=== PATIENT | female | born 1980 | race Caucasian/White ===

== ENCOUNTER → 2018-10-20 | Outpatient (CLI) | payer OTHER ==
[~2018-10-20] MED LIST: BENZ100A PO; MELO7.5 PO; TRAM50 PO
[2018-10-20 18:26] LABS: BASOPHILS ABSOLUTE AUTO 0.04 K/mm3 (0.00-0.23); BASOPHILS PERCENT AUTO 1 % (0-2); EOSINOPHILS ABSOLUTE AUTO 0.03 K/mm3 (0.00-0.68); EOSINOPHILS PERCENT AUTO 1 % (0-6); Hematocrit 46.6 % (33.0-51.0); Hemoglobin 15.1 g/dL (11.5-16.0); IMMATURE GRAN ABSOLUTE AUTO 0.02 K/mm3 (0.00-0.10); IMMATURE GRAN PERCENT AUTO 1 % (0-1); LYMPHOCYTES ABSOLUTE AUTO 0.75 K/mm3 (0.84-5.20); LYMPHOCYTES PERCENT AUTO 24 % (21-46); MONOCYTES ABSOLUTE AUTO 0.26 K/mm3 (0.16-1.47); MONOCYTES PERCENT AUTO 8 % (4-13); Mean Corpuscular HGB 28.8 pg (26.0-34.0); Mean Corpuscular HGB Conc 32.4 g/dL (31.5-36.5); Mean Corpuscular Volume 89 fL (80-100); Mean Platelet Volume 9.9 fL (9.1-12.4); NEUTROPHILS ABSOLUTE AUTO 1.99 K/mm3 (1.96-9.15); NEUTROPHILS PERCENT AUTO 64 % (41-73); Platelet Count 276 K/mm3 (150-400); RDW Standard Deviation 42.5 fL (35.1-46.3); Red Blood Cell Count 5.25 M/mm3 (3.80-5.20); White Blood Cell Count 3.09 K/mm3 (4.00-11.30)
== END | disposition home or self-care (01) ==
LOC: LAB SHORT 18:19 → LAB 18:19
PROVIDERS: Family Medicine
DX: R50.9 Fever, unspecified (principal)
CPT/HCPCS: 85025

== ENCOUNTER 2019-06-17 12:46 | Emergency (ER) | payer BC ==
[~2019-06-17] VITALS: Ht 160 cm; Wt 79.4 kg
[2019-06-17] MEDS ORDERED: CYCL10 PO (14:03)
[2019-06-17] MEDS ORDERED: Voltaren100 GM TOP (14:03)
== END 2019-06-17 14:12 | disposition home or self-care (01) ==
LOC: ER 12:46
DX: M54.5 Low back pain (principal); M79.673 Pain in unspecified foot; M87.9 Osteonecrosis, unspecified; J45.909 Unspecified asthma, uncomplicated; Z79.899 Other long term (current) drug therapy
CPT/HCPCS: 72100; 73502; 96372; 99283-25; J1885

== ENCOUNTER → 2019-12-06 | Outpatient (CLI) | payer BC ==
[~2019-12-06] MED LIST changes: +CYCL10 PO; +Voltaren100 GM TOP
[2019-12-11 15:09] LABS: HPV 16 Negative (Negative); HPV 18 Negative (Negative); HPV OTHER HR TYPES Negative (Negative)
== END | disposition home or self-care (01) ==
LOC: LAB SHORT 11:08 → LAB 11:08
PROVIDERS: Advanced Practice Midwife
DX: Z01.419 Encounter for gynecological examination (general) (routine) without abnormal findings (principal)
CPT/HCPCS: 87624; G0123

== ENCOUNTER → 2021-03-06 | Outpatient (CLI) | payer BC ==
[2021-03-09 17:08] LABS: HPV 16 Negative (Negative); HPV 18 Negative (Negative); HPV OTHER HR TYPES Negative (Negative)
== END | disposition home or self-care (01) ==
LOC: LAB SHORT 13:50 → LAB 13:50
PROVIDERS: Advanced Practice Midwife
DX: Z01.419 Encounter for gynecological examination (general) (routine) without abnormal findings (principal)
CPT/HCPCS: 87624; G0123

== ENCOUNTER 2021-04-29 21:02 | Emergency (ER) | payer BC ==
[~2021-04-29] VITALS: Ht 160 cm; Wt 70.8 kg
[2021-04-29] MEDS ORDERED: PROP10 PO (22:42)
== END 2021-04-30 00:04 | disposition home or self-care (01) ==
LOC: ER 21:02
DX: M16.11 Unilateral primary osteoarthritis, right hip (principal); J45.909 Unspecified asthma, uncomplicated
CPT/HCPCS: A9270; J1885

== ENCOUNTER → 2021-09-18 | Outpatient (CLI) | payer BC ==
[~2021-09-18] MED LIST changes: +PROP10 PO
[2021-09-19 12:22] LABS: Candida species (DNA Probe) Positive (NEGATIVE); G. vaginalis (DNA Probe) Positive (NEGATIVE); T. vaginalis (DNA Probe) Negative (NEGATIVE)
== END | disposition home or self-care (01) ==
LOC: LAB SHORT 18:34
PROVIDERS: Advanced Practice Midwife
DX: N76.0 Acute vaginitis (principal)
CPT/HCPCS: 87480; 87510; 87660

== ENCOUNTER 2022-10-06 20:02 | Emergency (ER) | payer BC ==
[~2022-10-06] VITALS: Ht 160 cm; Wt 79.4 kg
[2022-10-06 20:07] VITALS: BP 100/71
== END 2022-10-06 20:50 | disposition home or self-care (01) ==
LOC: ER 20:02
DX: G89.18 Other acute postprocedural pain (principal); M25.551 Pain in right hip; Z79.899 Other long term (current) drug therapy; J45.909 Unspecified asthma, uncomplicated
CPT/HCPCS: 73502

== ENCOUNTER → 2024-10-11 | Outpatient (CLI) | payer BC | LOC: LAB SHORT 08:00 → LAB 08:00 | DX: D10.39 Benign neoplasm of other parts of mouth (principal) | CPT/HCPCS: 88305 ==

== ENCOUNTER → 2025-04-02 | Outpatient (CLI) | payer BC | END | disposition home or self-care (01) | LOC: LAB SHORT 14:47 → LAB 14:47 | PROVIDERS: Advanced Practice Midwife | DX: Z01.419 Encounter for gynecological examination (general) (routine) without abnormal findings (principal) | CPT/HCPCS: 87624; G0145 ==